=== PATIENT | male | born 1980 | race Two or more races ===

== ENCOUNTER 2018-03-03 22:53 | Inpatient (IN) ==
[2018-03-03 23:30] LABS: Basophils % 0.3 % (0.1-2.0); Eosinophils # 0.4 K/mm3 (0.0-0.4); Eosinophils % 4.5 % (0.1-12.0); Hemoglobin 11.5 g/dL (14.1-18.0); Lymphocytes # 0.8 K/mm3 (0.7-4.5); Lymphocytes % 8.2 K/mm3 (10-50); Mean Corpuscular HGB Conc 37.2 g/dL (31.8-35.4); Mean Corpuscular Hemoglobin 31.6 pg (27.0-31.2); Mean Corpuscular Volume 84.9 fl (80-94); Mean Platelet Volume 8.2 fl (7.4-10.4); Monocytes # 0.5 K/mm3 (0.1-1.0); Monocytes % 5.1 % (1.7-9.3); Neutrophils # 7.7 K/mm3 (1.8-7.8); Neutrophils % 81.8 % (37.0-80.0); Platelet Count 164 K/mm3 (142-424); Red Blood Count 3.65 M/mm3 (4.60-6.20); Red Cell Distribution Width 16.6 % (11.5-17.5); White Blood Count 9.4 K/mm3 (4.8-10.8)
[2018-03-03 23:58] LABS: Albumin/Globulin Ratio 1.1 (1.1-1.8); Anion Gap 20.7 mEq/L (5-15); Bilirubin,Total 0.6 mg/dL (0.2-1.0); Calcium 8.3 mg/dL (8.5-10.1); Globulin 3.7 gm/dl (1.3-3.2); Thyroid Stimulating Hormone 3.07 uIU/ml (0.358-3.740); Total Protein,Serum 7.7 gm/dL (6.4-8.2)
[2018-03-03 23:59] LABS: Potassium 2.7 mmoL/L (3.5-5.1)
[2018-03-04 00:04] LABS: Creatine Kinase 858 U/L (39-308)
[2018-03-04 00:19] LABS: Amphetamine/Metha Screen,Urine Negative ng/mL (<1000); Barbiturates Screen,Urine Negative ng/mL (<200); Benzodiazepines Screen,Urine Negative ng/mL (200); Cannabinoid Screen,Urine Negative ng/mL (<50); Cocaine Screen,Urine Negative ng/g (<300); Methadone Screen,Urine Negative ng/mL (<300); Opiate Screen,Urine Negative ng/mL (<300); Phencyclidine Screen,Urine Negative ng/mL (<25)
--- NOTE | 2018-03-04 01:03 | Emergency Department Note ---
ED Disposition Clinical Impression: Hypokalemia, Alcoholism /alcohol abuse Alcohol withdrawal seizure Qualifiers: Complication of substance-induced condition: with unspecified complication Qualified Code(s): F10.239 - Alcohol dependence with withdrawal, unspecified; R56.9 - Unspecified convulsions Anemia Qualifiers: Anemia type: other cause Other causes of anemia: other cause, not classified Qualified Code(s): D64.89 - Other specified anemias Forehead abrasion Qualifiers: Encounter type: initial encounter Qualified Code(s): S00.81XA - Abrasion of other part of head, initial encounter Disposition: Admitted As Inpatient Condition on Discharge: Fair Time of Disposition: 00:45 - Critical Care Critical Care Time: Yes Attestation: On 03/03/18, the high probability of a clinically significant, sudden or life threatening deterioration of the following system(s) required my full and direct attention, intervention and personal management. The time I documented below is in addition to time spent performing reported procedures but includes the following listed in this critical care notation. Total Critical Care Time: 75 Vital system(s) involved:: Central Nervous System, Metabolic Failure My critical care processes included: Assessment & monitoring of V/S, Initial and Re-exams, Data Review/Interpretation, Coordinating Care, Medication Orders and management, Documentation Medical Decision Making - Medical Records Medical records reviewed: Yes: I reviewed the patient's medical records. - Sea Inquiry Pt receiving controlled substance: No Vital Signs: 03/03/18 22:57 03/03/18 23:13 03/04/18 00:02 Temperature 99 F Temperature Source Oral Pulse Rate [Left Radial] 130 H 121 H 111 H Respiratory Rate 20 20 20 Blood Pressure [Right Arm] 149/100 169/97 126/57 Blood Pressure Mean [Right Arm] 116 121 80 Blood Pressure Source [Right Arm] Automatic Cuff Automatic Cuff Automatic Cuff Blood Pressure Position [Right Arm] Sitting Supine Supine 02 Sat by Pulse Oximetry 98 98 98 Oxygen Delivery Method Room Air - Lab Data Lab results reviewed: Yes: I reviewed the patient's lab results. Lab Results 03/03/18 23:18: WBC 9.4, RBC 3.65 L, Hgb 11.5 L, Hct 31.0 L, MCV 84.9, MCH 31.6 H, MCHC 37.2 H, RDW 16.6, Plt Count 164, MPV 8.2, Neut % (Auto) 81.8 H, Lymph % (Auto) 8.2 L, [place] % (Auto) 5.1, Eos % (Auto) 4.5, Baso % (Auto) 0.3, Neut # ( Auto) 7.7, Lymph # (Auto) 0.8, [place] # (Auto) 0.5, Eos # (Auto) 0.4, Baso # (Auto ) 0.0 03/03/18 23:18: Sodium 132 L, Potassium 2.7 L*, Chloride 94 L, Carbon Dioxide 20 L, Anion Gap 20.7 H, BUN 7, Creatinine 1.09, Estimated Creat Clear 100, Estimated GFR 77, Est GFR ( Amer) 93, Glucose 159 H, Calcium 8.3 L, Total Bilirubin 0.6, AST 113 H, ALT 54, Alkaline Phosphatase 108, Total Protein 7.7, Albumin 4.0, Globulin 3.7 H, Albumin/Globulin Ratio 1.1, Amylase 63, TSH 3.07, Salicylates 1.0 L, Acetaminophen 0 L, Plasma/Serum Alcohol 0 03/03/18 23:18: Lipase 218 03/03/18 23:18: Total Creatine Kinase 858 H*, CK-MB (CK-2) 8.1 H*, CK-MB (CK-2) Rel Index 0.9, Troponin I < 0.02 03/03/18 23:59: Urine Opiates Screen Negative, Ur Barbituates Screen Negative, Ur Phencyclidine Scrn Negative, Ur Amphetamines Screen Negative, U Methamphetamines Scrn Negative, U Benzodiazepines Scrn Negative, Urine Cocaine Screen Negative, U Marijuana (THC) Screen Negative Result diagrams: 03/04/18 05:40 03/04/18 05:40 Orders (Tests/Meds): ED MEDICATIONS Generic Name Dose Route Start Last Admin Trade Name Freq PRN Reason Stop Dose Admin Folic Acid 1 mg 03/04/18 09:00 Folic Acid 1mg Tablet PO 04/03/18 08:59 DAILY CHSAIDY Multivitamins 10 ml/ Thiamine 1,015 mls @ 150 mls/hr 03/04/18 01:13 03/04/18 01:26 HCl 100 mg/ Magnesium Sulfate IV 03/04/18 07:00 Not Given 2 gm/ Lactated Ringer's .Q6H46M CHASIDY Multivitamins 10 ml/ Thiamine 1,015 mls @ 125 mls/hr 03/04/18 09:00 HCl 100 mg/ Magnesium Sulfate IV 04/03/18 08:59 2 gm/ Lactated Ringer's DAILY CHASIDY Lorazepam 1 mg 03/04/18 01:13 Ativan 2mg/Ml Vial IV Q4H PRN Alcohol Withdrawal Nicotine 21 mg 03/04/18 01:13 03/04/18 02:18 Nicoderm 21mg/24hr Patch TD 04/03/18 01:12 21 mg DAILYP PRN Administration Nicotine Cravings Oxazepam 15 mg 03/06/18 01:09 Serax 15mg Capsule PO 04/05/18 01:08 Q6H CHASIDY Oxazepam 30 mg 03/04/18 01:15 03/04/18 06:59 Serax 15mg Capsule PO 03/05/18 19:16 Not Given Q6H CHASIDY Discontinued Medications Generic Name Dose Route Start Last Admin Trade Name Freq PRN Reason Stop Dose Admin Folic Acid 1 mg 03/04/18 00:09 03/04/18 00:31 Folic Acid 1mg Tablet PO 03/04/18 00:10 1 mg ONCE ONE Administration Lactated Ringer's 1,000 mls @ 999 mls/hr 03/03/18 23:00 03/03/18 23:12 Lactated Ringer's 1000 Ml Bag IV 03/04/18 00:00 999 mls/hr .Q1H1M CHASIDY Administration Multivitamins 10 ml/ Thiamine 1,015 mls @ 150 mls/hr 03/04/18 00:15 03/04/18 00:35 HCl 100 mg/ Magnesium Sulfate IV 03/04/18 07:00 150 mls/hr 2 gm/ Lactated Ringer's .Q6H46M CHASIDY Administration Lactated Ringer's 1,000 mls @ 999 mls/hr 03/04/18 00:45 03/04/18 00:38 Lactated Ringer's 1000 Ml Bag IV 03/04/18 01:45 999 mls/hr .Q1H1M CHASIDY Administration Lorazepam 1 mg 03/04/18 00:08 03/04/18 00:34 Ativan 2mg/Ml Vial IV 03/04/18 00:09 1 mg ONCE ONE Administration Potassium Chloride 60 meq 03/04/18 00:08 03/04/18 00:30 Klor-Con 20meq Tablet PO 03/04/18 00:09 60 meq ONCE ONE Administration Tetanus/Diphtheria Toxoids 0.5 ml 03/03/18 23:22 03/03/18 23:32 Tenivac 0.5ml Syringe IM 03/03/18 23:23 Not Given .ONCE ONE - Radiology Data #1 Image(s): Chest Image Reviewed: Yes I reviewed the patient's radiology results, Yes I reviewed the patient's radiology image Preliminary Findings: Normal/NAD - CT Data CT Scan: Head, C-Spine Time Received: 00:[address] Reviewed: Yes: I have reviewed the patient's CT results, I have viewed the radiologist's interpretation Preliminary Findings: Normal/NAD - ECG Data Tracing #1 I reviewed this ECG and interpreted as documented below: Heart rate 130, no acute ischemic changes, no ectopies. Normal Sinus Rhythm: No Arrhythmias present: sinus tach - Physician Consults Physician Consulted: Dr Turner Time: 00:45 Reason -: Admission, Pt condition Comment/Response: Advised of patient's presentation and findings, agreeable with hospitalization. - Reevaluation(s) Time: 00:45 Reevaluation #1: Patient appears medically stable, in no acute distress, feeling better after receiving IV benzodiazepines. Advise patient of need to be hospitalized in view of the (impending) withdrawal seizures. Syncope HPI - General Chief Complaint: Syncope Stated Complaint: chest pain Time Seen by Provider: 03/03/18 23:00 Mode of Arrival: EMS Limitations: Language Barrier Description of Symptoms (Recalled from ER Triage Doc. by RN): to ed per squad report that pt "fell over on to floor" when squad got to scene HR was 165 given adenosine at scene 6mg, 12mg, 6mg. pt with abrasion to face, and hands, pt does not speak ukrainian. pt was incontinent of urine and lac noted to tongue. cpta adenosine - History of Present Illness HPI narrative: This is a male patient brought to the emergency room after having a tonicoclonic seizure, at home. He has bite castillo on his tongue, he was incontinent, he was postictal upon EMS arrival. Patient is an alcoholic, with his last binge drinking less than 24 hours ago. Patient denies any previous similar episodes in the past. Brought to the hospital patient was found to be in SVT and he was given 3 consecutive doses of adenosine, 6 mg, 12.5, 6 mg ( truck was out of Adenosine), dropping his heart rate from 180 down to 130s. Interview conducted through educational sign language interpreter. complaint: loss of consciousness -: second(s) Description of event: tonic-clonic movements, post-event confusion, incontinence Prodromal symptoms: lightheaded, palpitations, shortness of breath Witnessed: yes - by other (friends) Context: alcohol use Injuries sustained associated with event: face (forehead abrasions) Current symptoms: none Treatments prior to arrival: IV fluids - Related Data Home Medications Medication Instructions Recorded Confirmed No Known Home Medications 03/03/18 03/03/18 Allergies Allergy/AdvReac Type Severity Reaction Status Date / Time No Known Allergies Allergy Verified 03/03/18 23:11 [facility] History I have reviewed the patient's past medical history: Yes Other Medical History: Reports: Other (alcoholism) - Social History Smoking Status: Current every day smoker Tobacco Type: cigarettes Alcohol Intake: current - Psychiatric History Expresses thoughts of harming self/others: None Suicide Plan Description: No Plan ROS Obtained: Yes All systems reviewed & no additional complaints, Yes Systems reviewed as appropriate & no additional complaints - Integumentary/Breasts Skin/Breast: Reports system reviewed and no additional complaints, except as docu, Reports as per HPI, Reports lesions (abrasions forehead) - Neurologic Neurologic: Reports system reviewed and no additional complaints, except as docu , Reports as per HPI, Reports headache(s), Reports seizure-like activity Physical Exam - General General appearance: alert, in distress (moderate) - Head Head exam: atraumatic, normocephalic, other (Forehead abrasions, consistent with patient's account of seizure and head imjury) - Eye Eye exam: Present: normal appearance, PERRL, EOMI, other (normal fundi) - Neck Neck exam: Present: normal inspection, full ROM, trachea midline. Absent: meningismus, lymphadenopathy - Chest Chest inspection: Present: normal inspection, symmetric chest wall rise. Absent : tenderness - Respiratory Respiratory exam: Present: normal lung sounds bilaterally. Absent: respiratory distress - Cardiovascular Cardiovascular exam: Present: tachycardia. Absent: JVD - Abdominal Exam Abdominal exam: Present: soft, normal bowel sounds. Absent: distention, tenderness, guarding - Extremities Exam Extremities exam: Present: normal inspection, full ROM, normal capillary refill. Absent: calf tenderness - Neurological Exam Neurological exam: Present: alert, oriented X3, CN II-XII intact - Psychiatric Psychiatric exam: Present: anxious, flat affect - Skin Skin exam: Present: warm, dry, normal color, other (Abrasions across forehead)
[2018-03-04 06:04] LABS: Basophils % 0.3 % (0.1-2.0); Eosinophils # 0.4 K/mm3 (0.0-0.4); Eosinophils % 5.9 % (0.1-12.0); Hemoglobin 10.7 g/dL (14.1-18.0); Lymphocytes % 15.4 K/mm3 (10-50); Mean Corpuscular HGB Conc 31.4 g/dL (31.8-35.4); Mean Corpuscular Hemoglobin 26.6 pg (27.0-31.2); Mean Corpuscular Volume 84.8 fl (80-94); Mean Platelet Volume 8.5 fl (7.4-10.4); Monocytes # 0.4 K/mm3 (0.1-1.0); Monocytes % 6.7 % (1.7-9.3); Neutrophils # 4.7 K/mm3 (1.8-7.8); Neutrophils % 71.7 % (37.0-80.0); Platelet Count 160 K/mm3 (142-424); White Blood Count 6.5 K/mm3 (4.8-10.8)
[2018-03-04 06:12] LABS: Activated Partial Thrombo Time 23.4 seconds (23.6-34.0); INR 0.95 (0.9-1.1); Prothrombin Time 10.3 seconds (9.4-11.8)
[2018-03-04 06:20] LABS: Albumin Level 3.6 gm/dL (3.4-5.0); Albumin/Globulin Ratio 1.1 (1.1-1.8); Anion Gap 11.5 mEq/L (5-15); Bilirubin,Total 0.7 mg/dL (0.2-1.0); Calcium 8.4 mg/dL (8.5-10.1); Globulin 3.4 gm/dl (1.3-3.2); Phosphorous 3.6 mg/dL (2.4-4.9); Potassium 3.5 mmoL/L (3.5-5.1)
--- NOTE | 2018-03-04 07:35 | Pharmacy Consult Notes ---
[facility] Pharmacy VTE Monitoring - Patient Demographics Admission date: 03/04/18 Report Date: 03/04/18 Time: 07:35 Allergies/Adverse Reactions: Patient Allergies No Known Allergies Allergy (Verified 03/03/18 23:11) Height: 1.52 m Weight: 70.052 kg Patient Problems: Current Active Problems Alcohol withdrawal seizure (Acute) Hypokalemia (Acute) Alcoholism /alcohol abuse (Acute) Anemia (Acute) Forehead abrasion (Acute) - VTE Risk Labs: VTE Related Lab Results Hgb 10.7 g/dL (14.1-18.0) L 03/04/18 05:40 Hct 34.0 % (42.0-52.0) L 03/04/18 05:40 Plt Count 160 K/mm3 (142-424) 03/04/18 05:40 PT 10.3 seconds (9.4-11.8) 03/04/18 05:40 INR 0.95 (0.9-1.1) 03/04/18 05:40 APTT 23.4 seconds (23.6-34.0) L 03/04/18 05:40 BUN 6 mg/dL (7-18) L 03/04/18 05:40 Creatinine 0.76 mg/dL (0.70-1.30) D 03/04/18 05:40 Estimated Creat Clear 134 mL/min (0-300) 03/04/18 05:40 Was VTE Risk Assessment Performed: Yes VTE Score: 0 VTE Risk Level: Very Low Risk - Prophylaxis VTE Prophylaxis Ordered?: Yes Types of VTE Prophylaxis: TEDS Knee High Location of Applied Device: Bilateral Lower Extremeties - VTE Diagnosis Confirmed Treatment or plan recommended: Continue Current Treatment
--- NOTE | 2018-03-04 08:08 | History & Physical Report ---
*Admission Date: 03/04/18 *Chief complaint: possible sz *History of present illness: this male who may have had sz his is a male patient brought to the emergency room after having a tonicoclonic seizure, at home. He has bite castillo on his tongue, he was incontinent, he was postictal upon EMS arrival. Patient is an alcoholic, with his last binge drinking less than 24 hours ago. Patient denies any previous similar episodes in the past. Brought to the hospital patient was found to be in SVT and he was given 3 consecutive doses of adenosine, 6 mg, 12.5, 6 mg (truck was out of Adenosine), dropping his heart rate from 180 down to 130s. Interview conducted through plant science professor. Alcohol use 2. Syncope versus seizure, 03/2018 3. SVT A. Echocardiogram, 03/2018, preliminary report shows normal LV size and function with questionable mild right heart enlargement with mild tricuspid regurgitation. History of present illness: 37-year-old male with presenting symptom of syncope. Reportedly there was witnessed tonic-clonic seizure activity with loss of bladder control and a post ictal state. The patient speaks some Danish but is limited. A entry operator was used for questioning (the phone #1- [phone], the entry operator' s name is John). Patient relates that he was with friends drinking when he reportedly passed out. He is unsure of how much alcohol he had. He does not recall having any chest pain or palpitations prior to passing out. He does relate having some headaches from time to time if he is not able to get adequate night sleep and he only is able to sleep if he drinks alcohol daily. He states if he does not drink daily he may not sleep for 4-5 days. He denies any history of mental health or psychiatric issues. He denies any history of head trauma, stroke or seizure activity. He is here working planting tobacco. He denies any previous heart issues. He does not do illicit drugs but he does smoke 4-5 cigarettes per day. He has no family in this area. He denies any history of diabetes, hypertension or hyperlipidemia. Workup in the ER including a head CT was unremarkable including cardiac troponin. Patient did have SVT on telemetry, per ambulance records and ER notes , and was given 3 doses of adenosine (6 mg, 12 mg, 6 mg due to the truck not having any more doses of adenosine) with only slowing of his heart rate. Currently the patient is in a normal sinus rhythm. Cardiology consulted for evaluation and recommendations. [facility] History I have reviewed the patient's past medical history: Yes Medical History: Denies:: Cancer, Diabetes Mellitus Type 1, Diabetes Mellitus Type 2, Internal Pacemaker, MRSA Other Medical History: Reports: Other (alcoholism) Laterality Cases: Left: Other Other Surgeries: No: Pacemaker Amputation: No - *Social History Smoking Status: Current every day smoker Tobacco Type: cigarettes # Packs/Day (cigarettes): 1 #Yrs smoked (if former smoker): 20 Alcohol Intake: current Alcohol Intake Frequency:: 3 or more drinks per day Occupational Status: employed Housing: house Household Members: friend(s) - Psychiatric History Expresses thoughts of harming self/others: None Suicide Plan Description: No Plan *Family Hx:: Unable to obtain Review of Systems - Review of Systems Review of systems:: pertinent systems reviewed and negative unless documented below - Constitutional Denies fever(s) - Eyes Denies change in vision - ENT Denies throat swelling - *Cardiovascular Denies chest pain at rest - *Respiratory Denies cough - *Gastrointestinal Denies abdominal pain - *Genitourinary Denies blood in urine - *Musculoskeletal Reports neck pain, Denies joint pain - Integumentary/Breasts Denies rash - *Neurologic Reports headache(s), Reports seizure-like activity Meds Home Medications Medication Instructions Recorded Confirmed Type No Known Home Medications 03/04/18 03/04/18 History Allergies Allergy/AdvReac Type Severity Reaction Status Date / Time No Known Allergies Allergy Verified 03/03/18 23:11 Exam Vital signs and Labs for Last 24 Hours: Temp Pulse Resp BP Pulse Ox 98.9 F 102 H 16 88/48 96 03/04/18 03:59 03/04/18 03:59 03/04/18 03:59 03/04/18 03:59 03/04/18 03:59 Laboratory Results - last 24 hr 03/03/18 23:18: WBC 9.4, RBC 3.65 L, Hgb 11.5 L, Hct 31.0 L, MCV 84.9, MCH 31.6 H, MCHC 37.2 H, RDW 16.6, Plt Count 164, MPV 8.2, Neut % (Auto) 81.8 H, Lymph % (Auto) 8.2 L, [place] % (Auto) 5.1, Eos % (Auto) 4.5, Baso % (Auto) 0.3, Neut # ( Auto) 7.7, Lymph # (Auto) 0.8, [place] # (Auto) 0.5, Eos # (Auto) 0.4, Baso # (Auto ) 0.0 03/03/18 23:18: Sodium 132 L, Potassium 2.7 L*, Chloride 94 L, Carbon Dioxide 20 L, Anion Gap 20.7 H, BUN 7, Creatinine 1.09, Estimated Creat Clear 100, Estimated GFR 77, Est GFR ( Amer) 93, Glucose 159 H, Calcium 8.3 L, Total Bilirubin 0.6, AST 113 H, ALT 54, Alkaline Phosphatase 108, Total Protein 7.7, Albumin 4.0, Globulin 3.7 H, Albumin/Globulin Ratio 1.1, Amylase 63, TSH 3.07, Salicylates 1.0 L, Acetaminophen 0 L, Plasma/Serum Alcohol 0 03/03/18 23:18: Lipase 218 03/03/18 23:18: Total Creatine Kinase 858 H*, CK-MB (CK-2) 8.1 H*, CK-MB (CK-2) Rel Index 0.9, Troponin I < 0.02 03/03/18 23:59: Urine Opiates Screen Negative, Ur Barbituates Screen Negative, Ur Phencyclidine Scrn Negative, Ur Amphetamines Screen Negative, U Methamphetamines Scrn Negative, U Benzodiazepines Scrn Negative, Urine Cocaine Screen Negative, U Marijuana (THC) Screen Negative 03/04/18 05:40: PT 10.3, INR 0.95, APTT 23.4 L 03/04/18 05:40: Sodium 137, Potassium 3.5 D, Chloride 103, Carbon Dioxide 26 D , Anion Gap 11.5, BUN 6 L, Creatinine 0.76 D, Estimated Creat Clear 134, Estimated GFR 117, Est GFR ( Amer) 141 D, Glucose 101 D, Calcium 8.4 L , Phosphorus 3.6, Magnesium 2.9 H, Total Bilirubin 0.7, AST 89 H, ALT 48, Alkaline Phosphatase 92, Total Protein 7.0, Albumin 3.6, Globulin 3.4 H, Albumin /Globulin Ratio 1.1 03/04/18 05:40: WBC 6.5 D, RBC 4.00 L, Hgb 10.7 L, Hct 34.0 L, MCV 84.8, MCH 26.6 L, MCHC 31.4 L, RDW 17.0, Plt Count 160, MPV 8.5, Neut % (Auto) 71.7, Lymph % (Auto) 15.4, [place] % (Auto) 6.7, Eos % (Auto) 5.9, Baso % (Auto) 0.3, Neut # (Auto) 4.7, Lymph # (Auto) 1.0, [place] # (Auto) 0.4, Eos # (Auto) 0.4, Baso # (Auto) 0.0 I & O for Last 24 hours: Intake & Output 03/01/18 03/02/18 03/03/18 03/04/18 11:59 11:59 11:59 11:59 Intake Total 849 / 849 Balance 849 / 849 Weight 154 lb 7 oz - Constitutional average body habitus, cooperative - *Routine HEENT Exam Head: Present: normocephalic Eye: Present: EOMI, PERRL ENT: Present: mucous membranes moist - *Routine Neck Exam Present: supple - *Routine Respiratory Exam Present: CTA bilaterally - *Routine Cardiovascular Exam Present: Normal S1, Normal S2 - *Routine Abdominal Exam Present: soft. Absent: organomegaly - *Routine Extremities Exam Present: full ROM - Routine Back/Spine/Pelvis Exam Back/Spine: Present: full ROM - *Routine Skin Exam Comments: facial abrasions - *Routine Neurological Exam Present: alert, oriented X3, CN II-XII intact, normal reflexes, moving all extremities, normal speech - Routine Psychiatric Exam Present: normal affect H&P: Result - Labs Labs: Short CBC 03/03/18 03/04/18 Range/Units 23:18 05:40 WBC 9.4 6.5 D (4.8-10.8) K/mm3 Hgb 11.5 L 10.7 L (14.1-18.0) g/dL Hct 31.0 L 34.0 L (42.0-52.0) % Plt Count 164 160 (142-424) K/mm3 BMP 03/03/18 03/04/18 23:18 05:40 Sodium 132 L 137 Potassium 2.7 L* 3.5 D Chloride 94 L 103 Carbon Dioxide 20 L 26 D BUN 7 6 L Creatinine 1.09 0.76 D Glucose 159 H 101 D Calcium 8.3 L 8.4 L Cardiac Enzymes 03/03/18 Range/Units 23:18 Total Creatine Kinase 858 H* (39-308) U/L CK-MB (CK-2) 8.1 H* (0.0-3.6) ng/ml Troponin I < 0.02 (0.00-0.06) ng/ml Liver Function 03/03/18 03/04/18 Range/Units 23:18 05:40 Total Bilirubin 0.6 0.7 (0.2-1.0) mg/dL AST 113 H 89 H (15-37) U/L ALT 54 48 (12-78) U/L Alkaline Phosphatase 108 92 (46-116) U/L Albumin 4.0 3.6 (3.4-5.0) gm/dL Assessment and Plan (1) Seizure Current visit: Yes Status: Acute Category: Medical Code(s): R56.9 - Unspecified convulsions (2) Alcoholism /alcohol abuse Current visit: Yes Status: Acute Category: Medical Code(s): F10.20 - Alcohol dependence, uncomplicated (3) Anemia Current visit: Yes Status: Acute Qualifiers: Anemia type: other cause Other causes of anemia: other cause, not classified Qualified Code(s): D64.89 - Other specified anemias Category: Medical Code(s): D64.9 - Anemia, unspecified (4) Hypokalemia Current visit: Yes Status: Acute Category: Medical Code(s): E87.6 - Hypokalemia (5) SVT (supraventricular tachycardia) Current visit: Yes Status: Acute Category: Medical Code(s): I47.1 - Supraventricular tachycardia
--- NOTE | 2018-03-04 10:48 | Consult Report ---
History of Present Illness Consult date: 03/04/18 Requesting physician: Davi Turner Chief complaint: Syncope, SVT Additional Medical History:: 1. Alcohol use 2. Syncope versus seizure, 03/2018 3. SVT A. Echocardiogram, 03/2018, preliminary report shows normal LV size and function with questionable mild right heart enlargement with mild tricuspid regurgitation. History of present illness: 37-year-old male with presenting symptom of syncope. Reportedly there was witnessed tonic-clonic seizure activity with loss of bladder control and a post ictal state. The patient speaks some Stateless but is limited. A food expeditor was used for questioning (the phone #1- [phone], the food expeditor' s name is John). Patient relates that he was with friends drinking when he reportedly passed out. He is unsure of how much alcohol he had. He does not recall having any chest pain or palpitations prior to passing out. He does relate having some headaches from time to time if he is not able to get adequate night sleep and he only is able to sleep if he drinks alcohol daily. He states if he does not drink daily he may not sleep for 4-5 days. He denies any history of mental health or psychiatric issues. He denies any history of head trauma, stroke or seizure activity. He is here working planting tobacco. He denies any previous heart issues. He does not do illicit drugs but he does smoke 4-5 cigarettes per day. He has no family in this area. He denies any history of diabetes, hypertension or hyperlipidemia. Workup in the ER including a head CT was unremarkable including cardiac troponin. Patient did have SVT on telemetry, per ambulance records and ER notes , and was given 3 doses of adenosine (6 mg, 12 mg, 6 mg due to the truck not having any more doses of adenosine) with only slowing of his heart rate. Currently the patient is in a normal sinus rhythm. Cardiology consulted for evaluation and recommendations. [facility] History Medical History: Denies:: Cancer, Diabetes Mellitus Type 1, Diabetes Mellitus Type 2, Internal Pacemaker, MRSA Other Medical History: Reports: Other (alcoholism) Laterality Cases: Left: Other Other Surgeries: No: Pacemaker Amputation: No - *Social History Smoking Status: Current every day smoker Tobacco Type: cigarettes # Packs/Day (cigarettes): 1 #Yrs smoked (if former smoker): 20 Alcohol Intake: current Alcohol Intake Frequency:: 3 or more drinks per day Occupational Status: employed Housing: house Household Members: friend(s) - Psychiatric History Expresses thoughts of harming self/others: None Suicide Plan Description: No Plan *Family Hx:: Unable to obtain Meds Home Medications Medication Instructions Recorded Confirmed Type No Known Home Medications 03/04/18 03/04/18 History Allergies Allergy/AdvReac Type Severity Reaction Status Date / Time No Known Allergies Allergy Verified 03/03/18 23:11 Review of Systems - *Cardiovascular Reports chest pain, Reports rapid, pounding, or irregular heartbeat - *Respiratory Denies shortness of breath - *Gastrointestinal Denies abdominal pain - *Genitourinary Denies difficulty urinating - *Neurologic Reports headache(s), Reports seizure-like activity Exam Vital signs and Labs for Last 24 Hours: Temp Pulse Resp BP Pulse Ox 98.7 F 106 H 16 144/89 97 03/04/18 08:00 03/04/18 08:00 03/04/18 08:00 03/04/18 08:00 03/04/18 08:00 Laboratory Results - last 24 hr 03/03/18 23:18: WBC 9.4, RBC 3.65 L, Hgb 11.5 L, Hct 31.0 L, MCV 84.9, MCH 31.6 H, MCHC 37.2 H, RDW 16.6, Plt Count 164, MPV 8.2, Neut % (Auto) 81.8 H, Lymph % (Auto) 8.2 L, [place] % (Auto) 5.1, Eos % (Auto) 4.5, Baso % (Auto) 0.3, Neut # ( Auto) 7.7, Lymph # (Auto) 0.8, [place] # (Auto) 0.5, Eos # (Auto) 0.4, Baso # (Auto ) 0.0 03/03/18 23:18: Sodium 132 L, Potassium 2.7 L*, Chloride 94 L, Carbon Dioxide 20 L, Anion Gap 20.7 H, BUN 7, Creatinine 1.09, Estimated Creat Clear 100, Estimated GFR 77, Est GFR ( Amer) 93, Glucose 159 H, Calcium 8.3 L, Total Bilirubin 0.6, AST 113 H, ALT 54, Alkaline Phosphatase 108, Total Protein 7.7, Albumin 4.0, Globulin 3.7 H, Albumin/Globulin Ratio 1.1, Amylase 63, TSH 3.07, Salicylates 1.0 L, Acetaminophen 0 L, Plasma/Serum Alcohol 0 03/03/18 23:18: Lipase 218 03/03/18 23:18: Total Creatine Kinase 858 H*, CK-MB (CK-2) 8.1 H*, CK-MB (CK-2) Rel Index 0.9, Troponin I < 0.02 03/03/18 23:59: Urine Opiates Screen Negative, Ur Barbituates Screen Negative, Ur Phencyclidine Scrn Negative, Ur Amphetamines Screen Negative, U Methamphetamines Scrn Negative, U Benzodiazepines Scrn Negative, Urine Cocaine Screen Negative, U Marijuana (THC) Screen Negative 03/04/18 05:40: PT 10.3, INR 0.95, APTT 23.4 L 03/04/18 05:40: Sodium 137, Potassium 3.5 D, Chloride 103, Carbon Dioxide 26 D , Anion Gap 11.5, BUN 6 L, Creatinine 0.76 D, Estimated Creat Clear 134, Estimated GFR 117, Est GFR ( Amer) 141 D, Glucose 101 D, Calcium 8.4 L , Phosphorus 3.6, Magnesium 2.9 H, Total Bilirubin 0.7, AST 89 H, ALT 48, Alkaline Phosphatase 92, Total Protein 7.0, Albumin 3.6, Globulin 3.4 H, Albumin /Globulin Ratio 1.1 03/04/18 05:40: WBC 6.5 D, RBC 4.00 L, Hgb 10.7 L, Hct 34.0 L, MCV 84.8, MCH 26.6 L, MCHC 31.4 L, RDW 17.0, Plt Count 160, MPV 8.5, Neut % (Auto) 71.7, Lymph % (Auto) 15.4, [place] % (Auto) 6.7, Eos % (Auto) 5.9, Baso % (Auto) 0.3, Neut # (Auto) 4.7, Lymph # (Auto) 1.0, [place] # (Auto) 0.4, Eos # (Auto) 0.4, Baso # (Auto) 0.0 I & O for Last 24 hours: Intake & Output 03/01/18 03/02/18 03/03/18 03/04/18 11:59 11:59 11:59 11:59 Intake Total 1099 / 1099 Balance 1099 / 1099 Weight 154 lb 7 oz - *Routine Neck Exam Absent: JVD, carotid bruit - *Routine Respiratory Exam Present: CTA bilaterally - *Routine Cardiovascular Exam Present: RRR. Absent: murmur, gallop, rubs - *Routine Abdominal Exam Present: soft. Absent: tenderness - *Routine Extremities Exam Absent: edema - *Routine Neurological Exam Present: alert, oriented X3, moving all extremities Assessment and Plan (1) Syncope and collapse Current visit: Yes Status: Acute Category: Medical Code(s): R55 - Syncope and collapse (2) SVT (supraventricular tachycardia) Current visit: Yes Status: Acute Category: Medical Code(s): I47.1 - Supraventricular tachycardia (3) Alcohol withdrawal seizure Current visit: Yes Status: Acute Qualifiers: Complication of substance-induced condition: with unspecified complication Qualified Code(s): F10.239 - Alcohol dependence with withdrawal, unspecified; R56.9 - Unspecified convulsions Category: Medical Code(s): F10.239 - Alcohol dependence with withdrawal, unspecified; R56.9 - Unspecified convulsions (4) Alcoholism /alcohol abuse Current visit: Yes Status: Acute Category: Medical Code(s): F10.20 - Alcohol dependence, uncomplicated (5) Anemia Current visit: Yes Status: Acute Qualifiers: Anemia type: other cause Other causes of anemia: other cause, not classified Qualified Code(s): D64.89 - Other specified anemias Category: Medical Code(s): D64.9 - Anemia, unspecified (6) Hypokalemia Current visit: Yes Status: Acute Category: Medical Code(s): E87.6 - Hypokalemia - Assessment and plan all Dx Assessment and Plan for all problems:: 1. Syncope, likely multifactorial including alcohol use/abuse with possible withdrawal induced seizure, hypokalemia and SVT. Preliminary echocardiogram results show normal left ventricular size and function with no significant valvular heart disease. No evidence of acute coronary syndrome by troponin. Thyroid function is normal. Discussed with Dr. Arora. Recommend adding low- dose beta-nan for control of SVT with referral to [facility] for further evaluation and possible EP study. 2. Okay for discharge from cardiology standpoint.
--- NOTE | 2018-03-04 12:40 | Discharge Summary ---
General - General Admission date:: 03/04/18 Discharge date: 03/04/18 HPI HPI: this male who may have had sz his is a male patient brought to the emergency room after having a tonicoclonic seizure, at home. He has bite castillo on his tongue, he was incontinent, he was postictal upon EMS arrival. Patient is an alcoholic, with his last binge drinking less than 24 hours ago. Patient denies any previous similar episodes in the past. Brought to the hospital patient was found to be in SVT and he was given 3 consecutive doses of adenosine, 6 mg, 12.5, 6 mg (truck was out of Adenosine), dropping his heart rate from 180 down to 130s. Interview conducted through clinical editor. Alcohol use 2. Syncope versus seizure, 03/2018 3. SVT A. Echocardiogram, 03/2018, preliminary report shows normal LV size and function with questionable mild right heart enlargement with mild tricuspid regurgitation. History of present illness: 37-year-old male with presenting symptom of syncope. Reportedly there was witnessed tonic-clonic seizure activity with loss of bladder control and a post ictal state. The patient speaks some [place]ian but is limited. A insurance operations rep was used for questioning (the phone #1- [phone], the insurance operations rep' s name is John). Patient relates that he was with friends drinking when he reportedly passed out. He is unsure of how much alcohol he had. He does not recall having any chest pain or palpitations prior to passing out. He does relate having some headaches from time to time if he is not able to get adequate night sleep and he only is able to sleep if he drinks alcohol daily. He states if he does not drink daily he may not sleep for 4-5 days. He denies any history of mental health or psychiatric issues. He denies any history of head trauma, stroke or seizure activity. He is here working planting tobacco. He denies any previous heart issues. He does not do illicit drugs but he does smoke 4-5 cigarettes per day. He has no family in this area. He denies any history of diabetes, hypertension or hyperlipidemia. Workup in the ER including a head CT was unremarkable including cardiac troponin. Patient did have SVT on telemetry, per ambulance records and ER notes , and was given 3 doses of adenosine (6 mg, 12 mg, 6 mg due to the truck not having any more doses of adenosine) with only slowing of his heart rate. Currently the patient is in a normal sinus rhythm. Cardiology consulted for evaluation and recommendations. Hospital Course Hospital Course: pt did well with stabilized exam and no more sz or arrthymia and was seen by card with echo ok- will not treat with sz meds at this time as prob etoh related - discussed etoh and will see in office to refer to [facility] - Objective Vital signs: Temp Pulse Resp BP Pulse Ox 98.7 F 86 16 140/85 99 03/04/18 11:47 03/04/18 11:47 03/04/18 11:47 03/04/18 11:47 03/04/18 11:47 no acute distress - *Routine HEENT Exam Eye: Present: EOMI, PERRL ENT: Present: mucous membranes dry - *Routine Neck Exam Present: supple - *Routine Respiratory Exam Present: CTA bilaterally - *Routine Cardiovascular Exam Present: RRR - *Routine Abdominal Exam Present: soft - *Routine Extremities Exam Present: full ROM - *Routine Skin Exam Present: dry - *Routine Neurological Exam Present: alert, oriented X3, CN II-XII intact - Routine Psychiatric Exam Present: normal affect Results Labs on day of discharge: Labs from last 24 hours 03/04/18 03/04/18 03/04/18 05:40 05:40 05:40 WBC 6.5 D RBC 4.00 L Hgb 10.7 L Hct 34.0 L MCV 84.8 MCH 26.6 L MCHC 31.4 L RDW 17.0 Plt Count 160 MPV 8.5 Neut % (Auto) 71.7 Lymph % (Auto) 15.4 [place] % (Auto) 6.7 Eos % (Auto) 5.9 Baso % (Auto) 0.3 Neut # (Auto) 4.7 Lymph # (Auto) 1.0 [place] # (Auto) 0.4 Eos # (Auto) 0.4 Baso # (Auto) 0.0 PT 10.3 INR 0.95 APTT 23.4 L Sodium 137 Potassium 3.5 D Chloride 103 Carbon Dioxide 26 D Anion Gap 11.5 BUN 6 L Creatinine 0.76 D Estimated Creat Clear 134 Estimated GFR 117 Est GFR ( Amer) 141 D Glucose 101 D Calcium 8.4 L Phosphorus 3.6 Magnesium 2.9 H Total Bilirubin 0.7 AST 89 H ALT 48 Alkaline Phosphatase 92 Total Creatine Kinase CK-MB (CK-2) CK-MB (CK-2) Rel Index Troponin I Total Protein 7.0 Albumin 3.6 Globulin 3.4 H Albumin/Globulin Ratio 1.1 Amylase Lipase TSH Salicylates Urine Opiates Screen Acetaminophen Ur Barbituates Screen Ur Phencyclidine Scrn Ur Amphetamines Screen U Methamphetamines Scrn U Benzodiazepines Scrn Urine Cocaine Screen U Marijuana (THC) Screen Plasma/Serum Alcohol 03/03/18 03/03/18 03/03/18 23:59 23:18 23:18 WBC RBC Hgb Hct MCV MCH MCHC RDW Plt Count MPV Neut % (Auto) Lymph % (Auto) [place] % (Auto) Eos % (Auto) Baso % (Auto) Neut # (Auto) Lymph # (Auto) [place] # (Auto) Eos # (Auto) Baso # (Auto) PT INR APTT Sodium Potassium Chloride Carbon Dioxide Anion Gap BUN Creatinine Estimated Creat Clear Estimated GFR Est GFR ( Amer) Glucose Calcium Phosphorus Magnesium Total Bilirubin AST ALT Alkaline Phosphatase Total Creatine Kinase 858 H* CK-MB (CK-2) 8.1 H* CK-MB (CK-2) Rel Index 0.9 Troponin I < 0.02 Total Protein Albumin Globulin Albumin/Globulin Ratio Amylase Lipase 218 TSH Salicylates Urine Opiates Screen Negative Acetaminophen Ur Barbituates Screen Negative Ur Phencyclidine Scrn Negative Ur Amphetamines Screen Negative U Methamphetamines Scrn Negative U Benzodiazepines Scrn Negative Urine Cocaine Screen Negative U Marijuana (THC) Screen Negative Plasma/Serum Alcohol 03/03/18 03/03/18 23:18 23:18 WBC 9.4 RBC 3.65 L Hgb 11.5 L Hct 31.0 L MCV 84.9 MCH 31.6 H MCHC 37.2 H RDW 16.6 Plt Count 164 MPV 8.2 Neut % (Auto) 81.8 H Lymph % (Auto) 8.2 L [place] % (Auto) 5.1 Eos % (Auto) 4.5 Baso % (Auto) 0.3 Neut # (Auto) 7.7 Lymph # (Auto) 0.8 [place] # (Auto) 0.5 Eos # (Auto) 0.4 Baso # (Auto) 0.0 PT INR APTT Sodium 132 L Potassium 2.7 L* Chloride 94 L Carbon Dioxide 20 L Anion Gap 20.7 H BUN 7 Creatinine 1.09 Estimated Creat Clear 100 Estimated GFR 77 Est GFR ( Amer) 93 Glucose 159 H Calcium 8.3 L Phosphorus Magnesium Total Bilirubin 0.6 AST 113 H ALT 54 Alkaline Phosphatase 108 Total Creatine Kinase CK-MB (CK-2) CK-MB (CK-2) Rel Index Troponin I Total Protein 7.7 Albumin 4.0 Globulin 3.7 H Albumin/Globulin Ratio 1.1 Amylase 63 Lipase TSH 3.07 Salicylates 1.0 L Urine Opiates Screen Acetaminophen 0 L Ur Barbituates Screen Ur Phencyclidine Scrn Ur Amphetamines Screen U Methamphetamines Scrn U Benzodiazepines Scrn Urine Cocaine Screen U Marijuana (THC) Screen Plasma/Serum Alcohol 0 DS: Diagnosis - Discharge Diagnosis (1) Seizure Status: Acute (2) Alcoholism /alcohol abuse Status: Acute (3) Anemia Status: Acute (4) Hypokalemia Status: Acute (5) SVT (supraventricular tachycardia) Status: Acute Discharge Plan - Patient Discharge Instructions ACTIVITY: Continue current activity DIET: continue same diet - Follow up Plan Disposition: Home, Self-Care Prescriptions/Medication Reconciliation: New Metoprolol Succinate [Toprol XL 25mg tablet] 25 mg PO DAILY #30 tab.er.24h
[2018-03-05 07:35] VITALS: BP 139/91
== END 2018-03-04 13:00 | disposition home or self-care (01) ==
LOC: 2ND 22:53 → ER 22:53 → OBSVTOIN 03-04 01:35 → 2ND 03-04 01:38
PROVIDERS: ADMIT Emergency Medicine; ATTEND Emergency Medicine

== ENCOUNTER 2021-08-11 17:46 | Emergency (ER) | payer OTHER, SELFPAY ==
--- NOTE | 2021-08-11 17:58 | XR_ITS ---
PROCEDURE INFORMATION: Exam: XR Right Tibia and Fibula Exam date and time: 08/11/2021 5:58 PM Age: 40 years old Clinical indication: Pain; Lower leg; Right; Additional info: Fall TECHNIQUE: Imaging protocol: XR Right tibia and fibula. Views: 2 views. COMPARISON: No relevant prior studies available. FINDINGS: Bones/joints: A comminuted fracture of the distal fibular diaphysis, with approximate 4 cm length triangular fracture fragment slightly posteriorly displaced seen on lateral series 3 and 4. Posterior malleolar and medial malleolar fractures of the distal tibia at the ankle joint, as described on the ankle x-ray report. No acute fracture or dislocation is seen at the knee joint. No underlying lytic lesions. No chronic arthritic deformities at the knee or ankle. Soft tissues: Soft tissue swelling in the calf and ankle. Overlying external artifacts. IMPRESSION: 1. Comminuted and mildly displaced distal right fibular diaphyseal fracture. 2. Mildly displaced and rotated medial malleolar fracture of the distal tibia; a longitudinal minimally displaced fracture of the posterior malleolus of the distal tibia, at the ankle joint.
--- NOTE | 2021-08-11 17:58 | XR_ITS ---
PROCEDURE INFORMATION: Exam: XR Right Foot Exam date and time: 08/11/2021 5:58 PM Age: 40 years old Clinical indication: Pain; Foot; Right; Additional info: Fall TECHNIQUE: Imaging protocol: XR Right foot. Views: 3 or more views. COMPARISON: CR XR ANKLE RT MIN 3V 08/11/2021 6:01 PM FINDINGS: Bones/joints: Minimally displaced fractures of the medial bases of the 2nd and 4th metatarsal bones noted on AP series 1. Minimal cortical irregularity of the proximal metaphysis of the 3rd metatarsal bone which could be an additional nondisplaced injury. A small cortical avulsion fracture of the lateral base of the 5th metatarsal bone. Accessory peroneal ossicle. Question fracture of the distal calcaneus; oblique series 2 shows minimal cortical step-off of the calcaneus at the calcaneal cuboid joint, slight sclerosis and possible impaction of the distal-lateral calcaneus. Multiple tibial and fibular fractures, please see the ankle x-ray report. No underlying lytic lesions or significant arthritic changes. Soft tissues: Soft tissue swelling in the foot. No definite radiopaque foreign bodies. Overlying external artifacts. IMPRESSION: 1. Acute fractures of at least 2nd, 4th and 5th metatarsal bases as detailed above, and questionable nondisplaced fracture of the 3rd metatarsal base. 2. Findings suspicious for a slightly impacted articular fracture of the distal-lateral calcaneus at the calcaneal cuboid joint. 3. Distal tibial and fibular fractures, please see the ankle x-ray report.
--- NOTE | 2021-08-11 17:58 | XR_ITS ---
PROCEDURE INFORMATION: Exam: XR Right Ankle Exam date and time: 08/11/2021 5:58 PM Age: 40 years old Clinical indication: Pain; Ankle; Right; Additional info: Fall TECHNIQUE: Imaging protocol: XR Right ankle. Views: 3 or more views. COMPARISON: CR XR TIBIA FIBULA RT 2V 08/11/2021 5:58 PM FINDINGS: Bones/joints: Acute transverse, mildly displaced fracture of the medial malleolus. Comminuted fracture of the distal right fibular diaphysis, with a posteriorly displaced 3.8 cm length triangular fracture fragment seen on lateral series 3. The major distal fracture fragment is slightly anteriorly and laterally displaced. Lateral view shows a posterior malleolar fracture extending longitudinally through the posterior tibia at the ankle joint, minimally displaced. Frontal view shows talar tilt and widening of the medial ankle mortise, minimal lateral subluxation of the talus. No dislocation. There is also an avulsion fracture of the base of the 5th metatarsal bone.There are no lytic skeletal lesions seen. Soft tissues: Soft tissue swelling at the ankle and hindfoot.No radiopaque foreign bodies seen. Overlying external artifacts. IMPRESSION: 1. A trimalleolar variant fracture of the ankle. Transverse fracture of the medial malleolus, longitudinal fracture of the posterior malleolus, and comminuted fracture of the distal right fibular diaphysis. 2. Slight lateral subluxation of the talus. No dislocation. 3. Avulsion fracture of the base of the 5th metatarsal bone.
--- NOTE | 2021-08-11 17:58 | XR_ITS ---
PROCEDURE INFORMATION: Exam: XR Right Knee Exam date and time: 08/11/2021 5:58 PM Age: 40 years old Clinical indication: Pain; Knee; Right; Additional info: Fall TECHNIQUE: Imaging protocol: XR Right knee. Views: 3 views. COMPARISON: CR XR TIBIA FIBULA RT 2V 08/11/2021 5:58 PM FINDINGS: Bones/joints: No acute fracture or dislocation. Knee joint spaces are well preserved. No significant arthritic deformities. There are no lytic skeletal lesions seen. No significant joint effusion visible. Soft tissues: Overlying clothing artifacts.No radiopaque foreign bodies. No pathologic soft tissue calcification. IMPRESSION: No acute findings.
[2021-08-11 19:31] VITALS: BP 149/93; PULSE 103; RESP 18; TEMP 36.8; O2SAT 99; BMI 29.2
--- NOTE | 2021-08-11 20:41 | [facility].EDLOEX ---
ED Disposition Clinical Impression: Ankle fracture, right Qualifiers: Encounter type: initial encounter Fracture type: closed Qualified Code(s): S82.891A - Other fracture of right lower leg, initial encounter for closed fracture Multiple fractures of foot Qualifiers: Encounter type: initial encounter Fracture type: closed Laterality: right Qualified Code(s): S92.901A - Unspecified fracture of right foot, initial encounter for closed fracture Right fibular fracture Qualifiers: Encounter type: initial encounter Fibula location: distal Fracture type: closed Fracture morphology: unspecified fracture morphology Qualified Code(s): S82.831A - Other fracture of upper and lower end of right fibula, initial encounter for closed fracture Disposition: Home, Self-Care Condition on Discharge: Good Instructions: Ankle Fracture, DI for Foot Fracture Additional Instructions: elevate and no wt bearing and see ortho - dr quick in am Referrals: Provider,MD Ashok [Primary Care Provider] - Sridhar Quick MD [Staff Physician] - - Critical Care Critical Care Time: No Attestation: On 08/11/21, the high probability of a clinically significant, sudden or life threatening deterioration of the following system(s) required my full and direct attention, intervention and personal management. The time I documented below is in addition to time spent performing reported procedures but includes the following listed in this critical care notation. Medical Decision Making - Medical Records Medical records reviewed: Yes: I reviewed the patient's medical records. - Sea Inquiry Pt receiving controlled substance: No Vital Signs: 08/11/21 19:31 08/11/21 22:00 08/11/21 23:00 Temperature 98.3 F Temperature Source Oral Pulse Rate [Apical] 103 H 103 H 104 H Respiratory Rate 18 16 Blood Pressure [Right Arm] 149/93 H 154/96 H 143/89 H Blood Pressure Mean [Right Arm] 111 115 107 Blood Pressure Source [Right Arm] Automatic Cuff Automatic Cuff Automatic Cuff Blood Pressure Position [Right Arm] Sitting Supine Sitting 02 Sat by Pulse Oximetry 99 98 96 Oxygen Delivery Method Room Air Room Air Room Air - Lab Data Lab results reviewed: Yes: I reviewed the patient's lab results. Orders (Tests/Meds): ED MEDICATIONS Discontinued Medications Generic Name Dose Route Start Last Admin Trade Name Freq PRN Reason Stop Dose Admin Morphine Sulfate 2 mg 08/11/21 23:52 08/11/21 23:59 Morphine 2mg/Ml Syringe IM 08/11/21 23:53 2 mg ONCE ONE Administration Ondansetron HCl 4 mg 08/11/21 23:53 08/11/21 23:59 Ondansetron 4mg/2ml Vial IM 08/11/21 23:54 4 mg ONCE ONE Administration - Radiology Data #1 Image(s): Chest, Pelvis, Tib/Fib, Ankle, Foot/Toes Image Reviewed: Yes I have reviewed radiologist's interpretation Preliminary Findings: Abnormal - CT Data CT Scan: Other (ankle/foot) Time Received: 23:[address] Reviewed: Yes: I have viewed the radiologist's interpretation Preliminary Findings: Abnormal - Physician Consults Physician Consulted: quick Reason -: Pt condition Medical Decision Narrative: will need to see ortho in am and elevated foot and ankle and no wt bearing Lower Extremity Injury HPI - General Chief Complaint: Extremity Injury, Lower Stated Complaint: [id number] fall r leg injury Time Seen by Provider: 08/11/21 20:41 Mode of Arrival: Wheelchair Source of Information: Patient, Medical Record Limitations: Language Barrier Description of Symptoms (Recalled from ER Triage Doc. by RN): per Systems Integration Manager: patient states that when he was at work about 2 hours ago he was carrying a large bag of nuts and he dropped one on his right foot. Once he dropped them he tripped over them and fell as well. States that his pain is a 5 on a pain scale and he has not taken anything to treat the pain. - History of Present Illness HPI Narrative: fell with injury rt ankle/foot and lower leg lillie CLEMENTS co
--- NOTE | 2021-08-11 20:53 | CT_ITS ---
PROCEDURE INFORMATION: Exam: CT Right Lower Extremity Without Contrast, Ankle Exam date and time: 08/11/2021 8:53 PM Age: 40 years old Clinical indication: Injury or trauma; Fall; Fracture, pathological; Ankle; Right; Closed fracture TECHNIQUE: Imaging protocol: CT of the Right lower extremity without contrast was performed. Exam focused on the ankle. Radiation optimization: All CT scans at this facility use at least one of these dose optimization techniques: automated exposure control; mA and/or kV adjustment per patient size (includes targeted exams where dose is matched to clinical indication); or iterative reconstruction. COMPARISON: CR XR ANKLE RT MIN 3V 08/11/2021 6:01 PM FINDINGS: Bones/joints: There is a comminuted fracture of the distal diaphysis of the right fibula. There is anterior angulation and mild overriding of the main distal fracture fragment at the site of fracture. There is a fracture of the medial malleolus. A diastatic fracture of the posterior malleolus is identified. In addition, there is a fracture of the anterolateral aspect of the distal tibia, with diastasis of the articulation between the distal tibia and fibula, compatible with disruption of the distal tibiofibular syndesmosis. There is anterior subluxation of the distal tibia with respect to the talar dome. Widening of the interval between the talar dome and the tibia is identified laterally. Soft tissues: Prominent overlying soft tissue swelling. IMPRESSION: There is an unstable trimalleolar fracture identified. In addition, there is a fracture of the anterior and lateral aspect of the distal tibia, and I suspect that there has been disruption of the distal tibiofibular syndesmosis.
--- NOTE | 2021-08-11 20:53 | CT_ITS ---
PROCEDURE INFORMATION: Exam: CT Right Lower Extremity Without Contrast, Foot Exam date and time: 08/11/2021 8:53 PM Age: 40 years old Clinical indication: Injury or trauma; Fall; Blunt trauma; Foot; Right TECHNIQUE: Imaging protocol: CT of the Right lower extremity without contrast was performed. Exam focused on the foot. Radiation optimization: All CT scans at this facility use at least one of these dose optimization techniques: automated exposure control; mA and/or kV adjustment per patient size (includes targeted exams where dose is matched to clinical indication); or iterative reconstruction. COMPARISON: CR XR FOOT RT MIN 3V 08/11/2021 6:02 PM FINDINGS: Bones/joints: There is a chip fracture noted along the medial base of the tarsal navicular. A small chip fracture is also identified along the superior distal aspect of the talus at the talonavicular articulation. There is a nondisplaced fracture of the anterior superior aspect of the calcaneus adjacent to the tarsal sinus. There is a fracture of the medial base of the right 2nd metatarsal which extends into the right common tarsometatarsal joint space. There is a fracture of the medial base of the right 4th metatarsal which also extends into the common tarsometatarsal joint space. There is a chip fracture identified along the base of the right 5th metatarsal. There is a loose ossified body identified adjacent to the lateral base of the cuboid. It appears well corticated. Primary diagnostic consideration would be os peroneum. Soft tissues: There is extensive overlying soft tissue swelling identified. IMPRESSION: There are 6 separate fractures of the foot, as described.
--- NOTE | 2021-08-11 20:54 | XR_ITS ---
PROCEDURE INFORMATION: Exam: XR Chest Exam date and time: 08/11/2021 8:54 PM Age: 40 years old Clinical indication: Injury or trauma; Fall; Blunt trauma (contusions or hematomas) TECHNIQUE: Imaging protocol: XR of the chest. AP portable supine exam 10:11 p.m. Views: 4 or more views. COMPARISON: CR XR CHEST 2V 06/26/2019 12:09 PM FINDINGS: Lungs: Slightly elevated right diaphragm, mild right lower pulmonary volume loss. No acute pulmonary findings. No pulmonary consolidation. Pleural spaces: Unremarkable. No significant pleural effusion. No pneumothorax. Heart/Mediastinum: Cardiac silhouette is borderline enlarged, but is accentuated by portable AP technique. No vascular congestion. Bones/joints: Lower thoracic spondylosis.There is no evidence of acute fracture. IMPRESSION: No acute cardiopulmonary findings.
--- NOTE | 2021-08-11 20:55 | XR_ITS ---
PROCEDURE INFORMATION: Exam: XR Pelvis Exam date and time: 08/11/2021 8:55 PM Age: 40 years old Clinical indication: Injury or trauma; Fall; Blunt trauma (contusions or hematomas); Bilateral; Pelvic region TECHNIQUE: Imaging protocol: XR pelvis. Portable AP exam 10:13 p.m. Views: 1 or 2 view. COMPARISON: No relevant prior studies available. FINDINGS: Bones/joints: Bones appear intact and normally aligned with normal mineralization. No significant arthritic deformities. There are no lytic skeletal lesions seen. Soft tissues: No acute findings. No radiopaque foreign bodies. No pathologic soft tissue calcification. IMPRESSION: No acute fracture or dislocation.
[2021-08-11 22:00] VITALS: BP 154/96; PULSE 103; RESP 16; O2SAT 98
[2021-08-11 23:00] VITALS: BP 143/89; PULSE 104; O2SAT 96
[2021-08-12] VITALS: BP 150/94; PULSE 105; RESP 16; O2SAT 97
[2021-08-12 01:09] VITALS: BP 164/98; PULSE 100; RESP 18; TEMP 36.9; O2SAT 97
== END 2021-08-12 01:15 | disposition home or self-care (01) ==
LOC: UTC 17:50 → ER 19:26
PROVIDERS: Emergency Provider Emergency Medicine
DX: S92.324A Nondisplaced fracture of second metatarsal bone, right foot, initial encounter for closed fracture (principal); S92.354A Nondisplaced fracture of fifth metatarsal bone, right foot, initial encounter for closed fracture; S92.001A Unspecified fracture of right calcaneus, initial encounter for closed fracture; S92.101A Unspecified fracture of right talus, initial encounter for closed fracture; S92.344A Nondisplaced fracture of fourth metatarsal bone, right foot, initial encounter for closed fracture; W18.09XA Striking against other object with subsequent fall, initial encounter; Y92.89 Other specified places as the place of occurrence of the external cause; F10.20 Alcohol dependence, uncomplicated; F17.210 Nicotine dependence, cigarettes, uncomplicated
CPT/HCPCS: 29515; 71045; 72170; 73562; 73590; 73610; 73630; 73700; 96372; 99285; J2405

== ENCOUNTER → 2021-08-19 15:27 | Outpatient (CLI) | payer OTHER, SELFPAY ==
--- NOTE | 2021-08-19 15:29 | ECG_ITS ---
APPROVED REPORT Exam: Resting ECG HR:87 bpm ECG Measurements Heart Rate 87 AXES WY 126 P 53 QRSd 84 QRS 92 QT 378 T 25 QTc 454 Conclusion Normal sinus rhythm Rightward axis Borderline ECG Electronically signed by : Hai Steve MD 08/20/2021 19:28:02
--- NOTE | 2021-08-19 15:30 | XR_ITS ---
PROCEDURE: XR CHEST 2V CLINICAL HISTORY: pre-op; COMPARISON: CR CXR2V XR chest 2V from 03/03/2018 CR XR CHEST 2V from 06/26/2019 CR XR CHEST AP from 08/11/2021 FINDINGS: The cardiomediastinal silhouette and pulmonary vascularity are within normal limits. The lungs are clear without infiltrates, suspicious nodules, or pleural effusions. No acute bony abnormalities. IMPRESSION: No acute findings. Dictated by: Jem Marquez MD 08/19/2021 17:02 Jem Marquez MD in [facility] 08/19/2021 17:02
[2021-08-19 17:30] LABS: Basophils # 0.1 K/mm3 (0-0.2); Basophils % 1.1 % (0.1-2.0); Eosinophils # 0.7 K/mm3 (0.0-0.4); Eosinophils % 12.1 % (0.1-12.0); Hematocrit 38.6 % (42.0-52.0); Lymphocytes # 1.5 K/mm3 (0.7-4.5); Lymphocytes % 24.3 % (10-50); Mean Corpuscular HGB Conc 33.7 g/dL (31.8-35.4); Mean Corpuscular Hemoglobin 31.2 pg (27.0-31.2); Mean Corpuscular Volume 92.4 fl (80-94); Mean Platelet Volume 8.1 fl (7.4-10.4); Monocytes # 0.5 K/mm3 (0.1-1.0); Monocytes % 7.4 % (1.7-9.3); Neutrophils # 3.4 K/mm3 (1.8-7.8); Neutrophils % 55.1 % (37.0-80.0); Platelet Count 385 K/mm3 (142-424); Red Blood Count 4.18 M/mm3 (4.60-6.20); Red Cell Distribution Width 16.3 % (11.5-17.5); White Blood Count 6.2 K/mm3 (4.8-10.8)
[2021-08-19 17:40] LABS: Blood Urea Nitrogen 9 mg/dl (9-20); Calcium 9.4 mg/dl (8.4-10.2); Carbon Dioxide 30 mmol/L (22.0-30.0); Chloride 103 mmol/L (98-107); Estimated Glomerular Filt Rate 126 ml/min (>60); GFR (African American) 153 ML/MIN (>60); Glucose 89 mg/dl (74-100); Sodium 140 mmol/L (136-145)
[2021-08-19 19:48] LABS: Anion Gap 11.6 mEq/L (5-15); Potassium 4.6 mmoL/L (3.5-5.1)
== END ==
PROVIDERS: Visit Provider Orthopaedic Surgery
DX: S82.891A Other fracture of right lower leg, initial encounter for closed fracture (principal); Z01.818 Encounter for other preprocedural examination; U07.1 COVID-19; S82.401A Unspecified fracture of shaft of right fibula, initial encounter for closed fracture
CPT/HCPCS: 36415; 71046; 80048; 85025; 93005; C9803; U0003; U0005

== ENCOUNTER 2021-08-23 19:31 | Observation (INO) | payer OTHER, SELFPAY ==
[2021-08-23] VITALS (20 sets, daily range): BP systolic 122–186; BP diastolic 56–114; PULSE 74–112; RESP 12–19; TEMP 36.4–43; O2SAT 96–100; BMI 27.4
[2021-08-23 13:36] LABS: Coronavirus 19, PCR Not Detected (NotDetected); Influenza A, PCR Not Detected (NotDetected); Influenza B, PCR Not Detected (NotDetected)
--- NOTE | 2021-08-23 16:25 | P.PN_ITS ---
[facility] Anesthesia Checklist - Patient Identification Patient Identification: Arm Band - Structural Data Admitted From: Home Planned Operative Procedure/s: ORIF Right Ankle Consent for Planned Operative Procedure(s) Verified: Yes Verified Documents: Surgical Consent, History and Physical - NPO Status Verified Time NPO: 00:00 - Additional verifications Anesthesia Reactions: No Hx Blood Transfusions: No Blood Transfusion Reaction: No - Airway Assessment C-Spine Mobility Assessed: Yes (mp2) TMJ Mobility Assessed: Yes Dentition: Good Dentition - Neurological Assessment Level of Consciousness: Awake, Alert - Anesthesia Plan Anesthesia Risk discussed: Yes Anesthesia Plan: Verified ASA Class: II Anesthesia Type: General w/block (Popliteal/Adductor Canal Block) [facility] History I have reviewed the patient's past medical history: Yes Medical History: Denies:: Cancer, Diabetes Mellitus Type 1, Diabetes Mellitus Type 2, Internal Pacemaker, MRSA, Seizures *Have you ever received a pneumonia vaccine?: No *Have you received a flu vaccine this season?: No Other Medical History: Reports: Other. Denies: Blood Transfusion Reaction Anesthesia experience/problems:: nac Laterality Cases: Left: Other Other Surgeries: No: Pacemaker Amputation: No Fractures: Yes (l ankle) - *Social History Smoking Status: Current some day smoker Tobacco Type: cigars # Packs/Day (cigarettes): 1 #Yrs smoked (if former smoker): 20 Alcohol Intake: current Alcohol Intake Frequency:: 3 or more drinks per day Substance Use Type: denies use *Occupational Status:: unemployed Housing: house Household Members: friend(s) *Travel in the last 8 weeks: None Family Hx:: Unable to obtain
[2021-08-23 16:45] LABS: Microscopic,Cath URINE MICROSCOPIC (MICROSCOPIC)
[2021-08-23 16:49] LABS: Appearance,Urine/Cath CLEAR (Clear); Bilirubin,Cath Negative (Negative); Blood, Urine/Cath Negative (Negative); Color,Urine/Cath YELLOW (Yellow); Glucose,Urine/Cath (UA) Negative (Negative); Ketones,Urine/Cath Negative (Negative); Leukocyte Esterase,Cath Negative (Negative); Nitrate,Cath Negative (Negative); Protein,Urine/Cath Negative (Negative); Specific Gravity, Urine/Cath 1.015 (1.005-1.030); Urobilinogen,Cath 0.2 EU/dl (0.2)
[2021-08-23 17:05] LABS: Bacteria,Urine/Cath TRACE /lpf; Mucus,Urine/Cath 1+ /lpf; WBC,Urine/Cath Occasional #/hpf (0-3)
--- NOTE | 2021-08-23 17:38 | XR_ITS ---
PROCEDURE: XR FOOT RT MIN 3V CLINICAL INDICATION: ORIF COMPARISON: CR XR FOOT RT MIN 3V from 08/11/2021 CR XR ANKLE RT MIN 3V from 08/23/2021 FINDINGS: Fluoroscopy time: 2.19 minutes. Status post 1st tarsal metatarsal fusion with medial bone plate. Transverse screws are present extending from the medial to the lateral cuneiform area 1 of the screws appears to extend with in the plantar surface the soft tissues of the foot. Follow-up radiograph may confirm. IMPRESSION: Status post ORIF right foot as described above with good alignment. Please see above for detail Dictated by: Jem Marquez MD 08/29/2021 09:17 Jem Marquez MD in [facility] 08/29/2021 09:17
--- NOTE | 2021-08-23 17:38 | XR_ITS ---
PROCEDURE: XR ANKLE RT MIN 3V CLINICAL INDICATION: ORIF COMPARISON: CR XR ANKLE RT MIN 3V from 08/11/2021 FINDINGS: Fluoroscopy time: 2.19 minutes. Post ORIF distal tib fib with lateral fibular bone plate and multiple cortical screws. Two transverse screws extend from the distal fibula transversely into the distal tibia. Small medial tibial bone plate with cortical screws and 2 oblique screws within the medial malleolar region. Good alignment. IMPRESSION: Good alignment status post ORIF Dictated by: Jem Marquez MD 08/23/2021 18:23 Jem Marquez MD in [facility] 08/23/2021 18:23
--- NOTE | 2021-08-23 18:00 | HMH.OPNOTE ---
Date of procedure: 08/23/21 Pre-op Diagnosis:: Right trimalleolar ankle fracture, Lisfranc fracture Post-op Diagnosis:: Same Procedure performed:: Open reduction internal fixation right trimalleolar ankle fracture: 96334 Stress fluoroscopy right ankle: 75435 Syndesmotic repair right ankle: 40752 Open treatment tarsometatarsal joint dislocation: 52103 (first tarsometatarsal) Open treatment tarsometatarsal joint dislocation: 90619-94 (second tarsometatarsal) Midtarsal arthrodesis, multiple transverse: 03422 (first-second tarsometatarsal with intercuneiform) Allograft: See 176 (V 92, 5 cc) Surgeon:: Bravo Gonzales JR, MD Anesthesia: GETA, regional Estimated blood loss (mL): 5 Operative findings:: Unstable syndesmosis and first tarsometatarsal joint. Operative note:: Patient was identified in preoperative holding. Operative site was marked in indelible ink. History, physical, consent were reviewed and updated. Patient was surrendered to the anesthesia team, taken to the operative suite, placed supine on a well-padded operative table. Ipsilateral hip bump was placed as was a nonsterile thigh tourniquet. Anesthesia was induced. The operative extremity was prepped and draped in the usual sterile fashion. The operative team donned sterile gowns and gloves and a timeout was called. All in attendance agreed regarding the patient's identity, procedure, operative site. Weight-based dose of antibiotics was given prior to incision. Made a longitudinal incision over the fibula, dissected the skin and subcutaneous tissue, identified the fibula fracture, secured provisional fixation with lobster-claw clamps, placed to lag screw by technique, then placed along with locking precontoured fibular plate in neutralization fashion. I turned my attention medially, dissected through skin and subcutaneous tissue, identified the medial malleolar fragment. I initially secured fixation with 2 cannulated screws, but there was some displacement via shear at the fracture site, as such I backed out the screws, placed a buttress plate, then reapplied the screws. I performed a stress fluoroscopy of the ankle, noted syndesmotic widening it is such clamped, placed 2 syndesmotic screws through 4 cortices. I turned my attention to the foot, made 2 parallel incisions, one dorsally over the second and third tarsometatarsal joint and the other medially over the first tarsometatarsal joint. Identified the first and second tarsometatarsal joints respectively, remove cartilage with an osteotome. Prior stress fluoroscopy of the first tarsometatarsal joint demonstrated subluxation suggestive of ligamentous injury requiring arthrodesis. I fenestrated the joint surfaces, packed V 92 allograft into the arthrodesis sites, placed a lag screw by technique across the first tarsometatarsal joint, then a neutralization plate with the proximal screws bridging the intercuneiform joints. I clamped the base of the second metatarsal, reduced it into the appropriate position, and placed a partially threaded cannulated screw to apply compression at that joint as well. Orthogonal fluoroscopic views demonstrated appropriate fracture alignment and hardware placement. Wounds were closed in anatomic layers. Sterile dressings applied followed by a short leg splint. Counts were correct x2. There were no apparent complications. I was present and scrubbed for the entire case. Tourniquet time (min): 130 Condition: stable Disposition: PACU Complications:: None
--- NOTE | 2021-08-23 18:17 | P.PN_ITS ---
[facility] Anesthesia Record Part I Intake, IV Amount: 1,500 Estimated blood loss (mL): 10 Urine output (mL): 500 Blood Products used (#): none Blood Pressure: 169/102 SaO2: 97 Pulse Rate: 112 Respiratory Rate: 16 Temperature: 98 F Patient is:: Drowsy, Stable Stable to PACU at:: 18:05
--- NOTE | 2021-08-23 19:14 | PC.NURSE ---
patient up to floor from surgery at this time.
--- NOTE | 2021-08-23 19:41 | SUR.PHASEI ---
Translation iPad used in assisting patient post operatively.
[2021-08-23 20:42] LABS: Basophils # 0.1 K/mm3 (0-0.2); Basophils % 0.6 % (0.1-2.0); Eosinophils # 0.1 K/mm3 (0.0-0.4); Eosinophils % 1.5 % (0.1-12.0); Hematocrit 36.6 % (42.0-52.0); Hemoglobin 12.6 g/dL (14.1-18.0); Lymphocytes # 0.5 K/mm3 (0.7-4.5); Lymphocytes % 6.9 % (10-50); Mean Corpuscular HGB Conc 34.5 g/dL (31.8-35.4); Mean Corpuscular Hemoglobin 31.2 pg (27.0-31.2); Mean Corpuscular Volume 90.3 fl (80-94); Mean Platelet Volume 8.1 fl (7.4-10.4); Monocytes # 0.1 K/mm3 (0.1-1.0); Monocytes % 1.7 % (1.7-9.3); Neutrophils # 7.1 K/mm3 (1.8-7.8); Neutrophils % 89.3 % (37.0-80.0); Platelet Count 362 K/mm3 (142-424); Red Blood Count 4.05 M/mm3 (4.60-6.20); Red Cell Distribution Width 16.2 % (11.5-17.5); White Blood Count 7.9 K/mm3 (4.8-10.8)
[2021-08-23 20:44] LABS: MANUAL DIFFERENTIAL MANUAL DIFFERENTIAL (MANUAL DIFF)
[2021-08-23 20:49] LABS: Chloride 107 mmol/L (98-107); Potassium 4.1 mmoL/L (3.5-5.1); Sodium 138 mmol/L (136-145)
[2021-08-23 20:52] LABS: Alanine Aminotransferase 71 U/L (12-78); Albumin Level 4.1 g/dl (3.5-5.0); Albumin/Globulin Ratio 1.5 (1.1-1.8); Alkaline Phosphatase 104 U/L (38-126); Anion Gap 12.1 mEq/L (5-15); Aspartate Amino Transferase 106 U/L (17-59); Bilirubin,Total 0.6 mg/dl (0.2-1.3); Blood Urea Nitrogen 8 mg/dl (9-20); Carbon Dioxide 23 mmol/L (22.0-30.0); Creatinine Clearance Estimated 147 mL/min (50-200); Estimated Glomerular Filt Rate 126 ml/min (>60); GFR (African American) 153 ML/MIN (>60); Globulin 2.7 g/dL (1.3-3.2); Total Protein,Serum 6.8 g/dl (6.3-8.2)
[2021-08-23 20:53] LABS: Calcium 8.7 mg/dl (8.4-10.2); Glucose 124 mg/dl (74-100); Magnesium 1.8 mg/dl (1.6-2.3)
[2021-08-23 20:57] LABS: Activated Partial Thrombo Time 23.4 seconds (22.8-30.6); INR 1.02 (0.9-1.1); Prothrombin Time 11.5 seconds (10.1-12.5)
[2021-08-23 21:26] LABS: Eosinophils % 1 % (0-3); Lymphocytes % 4 % (10-50); Monocytes % 1 % (2-9); Neutrophils % 94 % (42-76); Platelet Estimate Normal; Spherocytes 1+; Total Cells Counted 100
[2021-08-24] VITALS: BP 142/74; PULSE 84; RESP 18; TEMP 36.7; O2SAT 97
[2021-08-24 01:00] VITALS: BP 134/72; PULSE 85; RESP 18; TEMP 36.6; O2SAT 99
[2021-08-24 04:00] VITALS: BP 143/80; PULSE 82; RESP 18; TEMP 36.9; O2SAT 99
[2021-08-24 07:35] VITALS: BP 163/98; PULSE 88; TEMP 36.4
--- NOTE | 2021-08-24 07:35 | P.PN_ITS ---
[facility] Anesthesia Record Part II Discharge Time: 19:05 Destination: Medical Surgical Department PACU nurse assessment reviewed?: Yes Patient Condition:: Good Anesthesia Complications:: None Swallowing reflex intact?: Yes Cyanosis?: No Blood Pressure: 163/98 Pulse Rate: 88 Temperature: 97.6 F Mental Status: Alert & Oriented Pain level:: 2 Nausea and/or vomitting:: None Intake, IV Amount: 0
[2021-08-24 08:00] VITALS: BP 126/79; PULSE 80; RESP 15; TEMP 37.3; O2SAT 98
--- NOTE | 2021-08-24 08:14 | HMH.PHAVTE ---
[facility] Pharm[facility] VTE Monitoring - Patient Demographics Admission date: 08/24/21 Report Date: 08/24/21 Time: 08:14 Allergies/Adverse Reactions: Patient Allergies No Known Allergies Allergy (Verified 08/19/21 15:26) Height: 1.63 m Weight: 72.575 kg - VTE Risk Labs: VTE Related Lab Results Hgb 12.6 g/dL (14.1-18.0) L 08/23/21 20:30 Hct 36.6 % (42.0-52.0) L 08/23/21 20:30 Plt Count 362 K/mm3 (142-424) 08/23/21 20:30 PT 11.5 seconds (10.1-12.5) 08/23/21 20:30 INR 1.02 (0.9-1.1) 08/23/21 20:30 APTT 23.4 seconds (22.8-30.6) 08/23/21 20:30 BUN 8 mg/dl (9-20) L 08/23/21 20:30 Creatinine 0.70 mg/dl (0.66-1.25) 08/23/21 20:30 Estimated Creat Clear 147 mL/min (50-200) 08/23/21 20:30 Was VTE Risk Assessment Performed: Yes VTE Score: 5 VTE Risk Level: Low Risk Clinical Trial Participant: No - Prophylaxis VTE Prophylaxis Ordered?: Yes Types of VTE Prophylaxis: IPCS Knee High (POST OP)
--- NOTE | 2021-08-24 10:02 | HMH.PTEV ---
Physical Therapy Evaluation Rehab PT IP Evaluation Start: 08/23/21 18:14 Freq: ONCE Status: Active Protocol: Document 08/24/21 09:59 PHOKATHLEEN (Rec: 08/24/21 10:02 PHORNE [id number]) Subjective/History History History 40 yohm adm to [facility] S/P L ankle fx, now S/P ORIF. He reports living with family or friends, but that he will be home alone for some of the day. He was independent with all mobility prior to adm. Subjective Subjective Pain reported on medial ankle this am. Rehab PT IP Eval Objective Appearance Patient Behavior Appropriate Patient Orientation Person,Place,Time Difficulty following instructions none Speech Pattern Clear Ambulation Patient Able to Ambulate Yes Ambulation Observation IP General Gait Pattern Observation Decrease Weight Bear (L) Ambulation Distance (feet) 20 Ambulation Assistive Device Rolling Walker Ambulation Ability Supervision/Stand by Balance Ability to Arise Able, uses arms to help Sitting Balance Steady, safe Standing Balance Steady, wide stance Dynamic Sitting Balance Ability Good Dynamic Standing Balance Ability Good Transfers Bed Transfer Ability Supervision/Stand by Chair Transfer Ability Supervision/Stand by Sit to Stand Bed Transfer Ability Supervision/Stand by Sit to Stand Chair Transfer Ability Supervision/Stand by ROM All Extremities PT ROM Status WFL Abnormal ROM Comment except L ankle NT MMT All Extremities PT MMT WFL Abnormal MMT Grade except L ankle NT Rehab PT IP prob,goals,plan Problems Date of Evaluation: 08/24/21 Discharge Plan PT Discharge Plan Pt is appropriate to D/C home once medically stable with RW for use at home. Maintained NWB well while ambulating. G -code Required No Eval Complexity Eval Charge Codes 92761 - Moderate Complexity PHYSICIAN CERTIFICATION: I certify the specified therapy services for Ruperto Borrego are required, authorized, and reviewed every 30 days.
--- NOTE | 2021-08-24 10:38 | SW/DCPLANNER ---
Due to patient not having insurance and can not afford a private pay walker Tamiko chegn/ [facility] has agreed to let patient borrow a rolling walker with the intent of returning to [facility] once finished. I did translate this conversation with patient via Ipad. Patient will discharge home today.
[2021-08-24 12:00] VITALS: BP 155/83; PULSE 80; RESP 16; TEMP 36.8; O2SAT 98
--- NOTE | 2021-08-24 14:23 | PC.NURSE ---
Pt educated to check with [facility] for med phelan and to return rolling walker back to [facility] when finished using. Verbalized understanding. Translater used to communicate with pt.
--- NOTE | 2021-08-24 16:47 | P.PN_ITS ---
Internal Medicine - PN: Subj *Date: 08/24/21 *Time: 16:59 Interval history: I spoke with Dr. Gonzales last evening and he has asked me to see Mr. Borrego today to arrange for discharge. Reviewed chart and labs. He does not speak Syrian but using the [employer] translation service, I was able to commincate with Ruperto and answer all questions. No signs or symptoms of alcohol withdrawal overnight. Exam Vital signs and Labs for Last 24 Hours: Temp Pulse Resp BP Pulse Ox 98.3 F 80 16 155/83 H 98 08/24/21 12:00 08/24/21 12:00 08/24/21 12:00 08/24/21 12:00 08/24/21 12:00 Laboratory Results - last 24 hr 08/23/21 13:30: Urine Color Yellow, Urine Appearance Clear, Urine pH 7.0, Ur Specific [place] 1.015, Urine Protein Negative, Urine Glucose (UA) Negative, Urine Ketones Negative, Urine Blood Negative, Urine Nitrate Negative, Urine Bilirubin Negative, Urine Urobilinogen 0.2, Ur Leukocyte Esterase Negative, Urine WBC Occasional, Urine Bacteria Trace 08/23/21 20:30: WBC 7.9, RBC 4.05 L, Hgb 12.6 L, Hct 36.6 L, MCV 90.3, MCH 31.2, MCHC 34.5, RDW 16.2, Plt Count 362, MPV 8.1, Neut % (Auto) 89.3 H, Lymph % (Auto) 6.9 L, [place] % (Auto) 1.7, Eos % (Auto) 1.5, Baso % (Auto) 0.6, Neut # (Auto) 7.1, Lymph # (Auto) 0.5 L, [place] # (Auto) 0.1, Eos # (Auto) 0.1, Baso # (Auto) 0.1, Total Counted 100, Neutrophils % (Manual) 94 H, Lymphocytes % (Manual) 4 L, Monocytes % (Manual) 1 L, Eosinophils % (Manual) 1, Platelet Estimate Normal, Spherocytes 1+ 08/23/21 20:30: PT 11.5, INR 1.02, APTT 23.4 08/23/21 20:30: Sodium 138, Potassium 4.1, Chloride 107, Carbon Dioxide 23, Anion Gap 12.1, BUN 8 L, Creatinine 0.70, Estimated Creat Clear 147, Estimated GFR 126, Est GFR ( Amer) 153, Glucose 124 H, Calcium 8.7, Phosphorus 5.0 H, Magnesium 1.8, Total Bilirubin 0.6, AST 106 H, ALT 71, Alkaline Phosphatase 104, Total Protein 6.8, Albumin 4.1, Globulin 2.7, Albumin/Globulin Ratio 1.5 I & O for Last 24 hours: Intake & Output 08/22/21 08/23/21 08/24/21 08/25/21 11:59 11:59 11:59 11:59 Intake Total 2980 / 2980 360 / 360 Output Total 1000 / 1000 Balance 1979 360 / 360 Weight 160 lb Narrative: He is lying comfortably in bed and appears in no distress. Lungs are clear. Heart is regular. Right ankle with surgical dressing that is clean and intact. No calf tenderness. Assessment and Plan (1) Ankle fracture, right Status: Acute Qualifiers: Encounter type: initial encounter Fracture type: closed Qualified Code(s): S82.891A - Other fracture of right lower leg, initial encounter for closed fracture Category: Medical Code(s): S82.891A - Other fracture of right lower leg, initial encounter for closed fracture (2) Alcoholism /alcohol abuse Status: Acute Category: Medical Code(s): F10.20 - Alcohol dependence, uncomplicated - Assessment and plan all Dx Assessment and Plan for all problems:: Postop day 1 repair of right ankle fracture. Dr. Gonzales has arranged his discharge instructions and will follow up with the patient in the clinic in 2 we eks. He will be assessed by physical therapy prior to discharge today.
--- NOTE | 2021-08-27 11:32 | HMH.DCSUM ---
General - General Admission date:: 08/23/21 <Mumtaz Diaz - 10/20/21 18:03> 08/23/21 <Shama Regalado - 08/27/21 11:33> Discharge date: 08/24/21 <Shama Regalado - 08/27/21 11:33> HPI HPI: Mr. Borrego is a 40-year-old male who was initially seen in the emergency room on 08/11/2021 after suffering fractures to his right foot and ankle. He was apparently at work carrying a large bag of nuts and dropped one on his right foot and then tripped over them and fell. His foot was splinted and an appointment was scheduled with Dr. Gonzales. He saw him in consultation on 08/19/2021. He had further imaging of the foot and ankle which showed a trimalleolar ankle fracture dislocation with bony fragments in the syndesmosis. It also showed fractures of the base of the second through fourth metatarsals and subtle malalignment of his first tarsometatarsal joint. Dr. Gonzales recommended operative fixation of both the ankle and foot and the patient was scheduled for surgery. Surgery was performed on 08/23/2021 and the patient had open reduction and internal fixation of the right trimalleolar ankle fracture. The patient was admitted overnight for monitoring. <Shama Regalado - 08/27/21 11:40> Hospital Course Hospital Course: Dr. Gonzales contacted Dr. Diaz to see the patient in his absence on 08/24/2021. The patient does not speak Jordanian but the hospital translation service was used and Dr. Diaz was able to answer all of the patient's questions. Dr. Gonzales had arranged his discharge instructions and will follow up with the patient in 2 weeks. <Shama Regalado - 08/27/21 11:40> Objective Vital signs: Temp Pulse Resp BP Pulse Ox 98.3 F 80 16 155/83 H 98 08/24/21 12:00 08/24/21 12:00 08/24/21 12:00 08/24/21 12:00 08/24/21 12:00 <Mumtaz Diaz - 10/20/21 18:03> Temp Pulse Resp BP Pulse Ox 98.3 F 80 16 155/83 H 98 08/24/21 12:00 08/24/21 12:00 08/24/21 12:00 08/24/21 12:00 08/24/21 12:00 <Shama Regalado - 08/27/21 11:33> Narrative: He is lying comfortably in bed and appears in no distress. Lungs are clear. Heart is regular. Right ankle with surgical dressing that is clean and intact. No calf tenderness. <Shama Regalado - 08/27/21 11:40> DS: Diagnosis - Discharge Diagnosis (1) Ankle fracture, right Status: Acute (2) Alcoholism /alcohol abuse Status: Acute <Shama Regalado 08/27/21 11:38> (1) Ankle fracture, right Status: Acute (2) Alcoholism /alcohol abuse Status: Acute <Mumtaz Diaz - 10/20/21 18:03> Discharge Plan - Patient Discharge Instructions ACTIVITY: Limited activity <Shama Regalado 08/27/21 11:33> DIET: regular diet <Shama Regalado 08/27/21 11:33> Additional Instructions: Non-weight bearing on right side <Mumtaz Diaz 10/20/21 18:03> Patient Instructions: Foot Fracture, Alcohol Use Disorder, DI for Foot Fracture, DI for Surgical Site Infection <Mumtaz Diaz - 10/20/21 18:03> Forms: <Mumtaz Diaz - 10/20/21 18:03> - Follow up Plan Follow up with: Bravo Gonzales JR, MD [Physician] - 09/09/21 1:30 pm <Mutmaz Diaz - 10/20/21 18:03> Disposition: Home, Self-Care <Mumtaz Diaz 10/20/21 18:03> Condition at discharge:: Stable <Shama Regalado 08/27/21 11:40> Home Medications: Home Medications Medication Instructions Recorded Confirmed Type Oxycodone HCl [Oxycodone 5mg tab 5 mg PO Q4HP PRN #60 tab 08/23/21 09/30/21 Rx (IR)] <Mumtaz Diaz 10/20/21 18:03> Prescriptions/Medication Reconciliation: New Oxycodone HCl [Oxycodone 5mg tab (IR)] 5 mg PO Q4HP PRN #60 tab PRN Reason: Moderate To Severe Pain <Mumtaz Diaz - 10/20/21 18:03> - Problem Reconciliation Problems Reviewed?: Yes <Mumtaz Diaz - 10/20/21 18:03> Yes <Shama Regalado - 08/27/21 11:40> - Additi
== END 2021-08-24 14:10 | disposition home or self-care (01) ==
LOC: OR 19:31 → 2ND 19:32
PROVIDERS: Orthopaedic Surgery; Admitting Provider Family Medicine; Visit Provider Family Medicine
PROC: (CPT 28730; principal; 2021-08-23 14:30)
DX: S82.851A Displaced trimalleolar fracture of right lower leg, initial encounter for closed fracture (principal); S93.324A Dislocation of tarsometatarsal joint of right foot, initial encounter; S93.431A Sprain of tibiofibular ligament of right ankle, initial encounter; Y92.69 Other specified industrial and construction area as the place of occurrence of the external cause; Y99.0 Civilian activity done for income or pay; W01.10XA Fall on same level from slipping, tripping and stumbling with subsequent striking against unspecified object, initial encounter; Z20.822 Contact with and (suspected) exposure to COVID-19
CPT/HCPCS: 28730; 27823; 27829; 28615; 36415; 73610; 73630; 80053; 81001; 83735; 84100; 85007; 85025; 85610; 85730; 96374; 97162; C1713; C1776; C9803; G0378; J2405; J2710; J3370; U0003; U0005

== ENCOUNTER → 2021-09-30 12:02 | Outpatient (CLI) | payer OTHER, SELFPAY ==
--- NOTE | 2021-09-30 12:06 | XR_ITS ---
PROCEDURE INFORMATION: Exam: XR Right Ankle Exam date and time: 09/30/2021 12:06 PM Age: 40 years old Clinical indication: Screening exam; Follow up; Prior surgery; Additional info: S/P RT ankle FX TECHNIQUE: Imaging protocol: XR Right ankle. Views: 3 or more views. COMPARISON: SD XR ANKLE RT MIN 3V 08/23/2021 5:30 PM FINDINGS: Bones/joints: Status post tibial and fibular ORIF, stable alignment and position. Soft tissues: Surgical nat. IMPRESSION: Stable postoperative appearance.
--- NOTE | 2021-09-30 12:06 | XR_ITS ---
PROCEDURE INFORMATION: Exam: XR Right Foot Exam date and time: 09/30/2021 12:06 PM Age: 40 years old Clinical indication: Screening exam; Follow up; Prior surgery; Additional info: S/P orif RT ankle TECHNIQUE: Imaging protocol: XR Right foot. Views: 3 or more views. COMPARISON: SD XR FOOT RT MIN 3V 08/23/2021 5:30 PM FINDINGS: Bones/joints: Status post ORIF and tarsal/metatarsal fusion. Stable alignment and position. Soft tissues: Minimal edema. IMPRESSION: Stable postoperative appearance.
== END ==
PROVIDERS: PCP Family Medicine; Visit Provider Orthopaedic Surgery
DX: S82.891A Other fracture of right lower leg, initial encounter for closed fracture (principal); S92.901A Unspecified fracture of right foot, initial encounter for closed fracture
CPT/HCPCS: 73610; 73630

== ENCOUNTER 2021-09-30 12:43 | Outpatient (RCR) | payer OTHER, SELFPAY | END 2021-09-30 13:47 | disposition home or self-care (01) | LOC: PT 12:43 | PROVIDERS: Visit Provider Orthopaedic Surgery | DX: S82.891D Other fracture of right lower leg, subsequent encounter for closed fracture with routine healing (principal); S82.831D Other fracture of upper and lower end of right fibula, subsequent encounter for closed fracture with routine healing; S92.901D Unspecified fracture of right foot, subsequent encounter for fracture with routine healing | CPT/HCPCS: 97760 ==